=== PATIENT | male | born 1985 | race African-American/Black ===

== ENCOUNTER 2017-10-22 06:10 | Day surgery (SDC) | payer OTHER ==
[~2017-10-22] VITALS: Ht 175.3 cm; Wt 90.7 kg
--- NOTE | ~2017-10-22 | HP ---
PATIENT: ANTHONY WALKER MEDICAL RECORD: [id number] ACCOUNT: [id number] LOCATION:[facility] : 87 ADMISSION DATE: 10/22/17 HISTORY AND PHYSICAL EXAMINATION ADDENDUM CHIEF COMPLAINT: Right breast mass. This is easily palpable. He has undergone an ultrasound. It has minimally lobular borders. I performed an examination on the patient. I note no left breast mass. There is a right breast mass, which is easily identifiable and is deep to the nipple. There is also some minimal adenopathy in the right axilla. I told the patient that should this mass represent a breast malignancy, then the patient would require additional procedures such as a sentinel lymph node biopsy and because he is a man, he will require a total mastectomy, possibly a port placement. A written history and physical is written in the chart. There are no overlying skin changes. No nipple retraction. No nipple discharge. Mother had breast cancer. No Peau d'orange. He states that the breast is occasionally painful. IMPRESSION: Right breast mass. PLAN: Excisional right breast biopsy. TRANSINT:[id number] Voice Confirmation ID: [id number] DOCUMENT ID: [id number] CC: ANIRUDH Lee, [facility]. CLEO TINOCO MD at 1746 CC: [id number] DICTATION DATE: 10/22/17 1210 JET DYEING MACHINE TENDER: 10/22/17 1232 [facility] 10/22/17 [id number] [place] [address]
--- NOTE | ~2017-10-22 | OP ---
PATIENT NAME: ANTHONY WALKER MEDICAL RECORD: [id number] :87 [facility] DATE: SURGEON: CLEO TINOCO MD DATE OF OPERATION: 10/22/2017 PREOPERATIVE DIAGNOSIS: Right breast mass. PROCEDURE: Excisional right breast biopsy. SURGEON: Cleo Tinoco MD USED EQUIPMENT SALES REPRESENTATIVE: None. BLOOD LOSS: Less than 25 cc. ANESTHESIA: General. COMPLICATIONS: None. The risks, possible complications and alternatives to the procedure were explained to the patient. He elects to proceed. OPERATIVE COURSE: The patient was conveyed the operating room electively on 10/22/2017. General anesthesia was induced by the anesthesia staff. The right breast sterilely prepped and draped. An areolar incision was accomplished around the areolar margin from 3-9 o'clock. I dissected down to the breast mass. This was excised with the scissors. I excised the mass from underneath the nipple areolar complex. The mass was oriented and sent to pathology. The initial results from the pathologist was that of a grossly nonmalignant lesion. I then reexcised in 3 different areas, the deep margin, the inferior margin, and lateral margin. Meticulous hemostasis was achieved with electrocautery and then with Amranda. The subdermis was approximated with interrupted 3-0 Vicryls. The skin was approximated with a running intracuticular 4-0 Vicryl. Benzoin and Steri-Strips were applied and then a sterile dressing was applied. The patient was then extubated and conveyed to post-anesthesia care unit where he was in stable condition. He will be dismissed back to alf facility with [facility] for pain. I will see him in the office in 2-3 weeks. TRANSINT:[id number] Voice Confirmation ID: [id number] DOCUMENT ID: [id number] CC: ANIRUDH Lee, [facility]. CLEO TINOCO MD at 1746 CC: [id number] DICTATION DATE: 10/22/17 1212 AGRICULTURAL CONSULTANT: 10/22/17 1312 [facility] 10/22/17 [place] [address]
[2017-10-22 08:13] VITALS: BP 159/94; Ht 175.3 cm; Wt 90.7 kg
== END 2017-10-22 14:30 | disposition home or self-care (01) ==
LOC: D.OPS 06:10
DX: N63.41 Unspecified lump in right breast, subareolar (principal); Z80.3 Family history of malignant neoplasm of breast; Z01.812 Encounter for preprocedural laboratory examination